=== PATIENT | female | born 1940 | race Caucasian/White ===

== ENCOUNTER 2019-04-30 09:46 | Emergency (ER) | payer MEDICARE, OTHER ==
[2019-04-30 09:58] VITALS: BP 172/94; PULSE 90; RESP 18; TEMP 98
--- NOTE | 2019-04-30 10:31 | ED ---
Extremity Problem HPI - General Chief complaint: Extremity Problem,Nontraumatic Stated complaint: Left arm pain Time Seen by Provider: 04/30/19 10:05 Source: patient Mode of arrival: ambulatory Limitations: no limitations - History of Present Illness Initial comments: Patient is a 78-year-old female, with past medical history of diabetes and hyperlipidemia, presenting to the emergency Department with complaints of left shoulder pain on and off for 2 weeks. Patient denies any trauma or injuries to the left shoulder. Patient states the proximal 92 weeks ago she was doing some painting and a lot of overhead activity when her shoulder and upper left back was sore. Patient does see a cow [place] and that did help a little bit. Patient states she was feeling improvement and then the pain would return. Patient states when she gets stressed she notices that the left shoulder pain does get worse. Patient was lifting cases of water when her pain returned. Patient is leaving for out of town next few days and is worried that something else is going on. Patient denies any chest pain, shortness of breath, cough, nausea, vomiting, abdominal pain at this time. Patient states she has been taking Motrin which does help with her pain. Patient denies any history of heart disease at this time. Patient has no other complaints at this time. Upon arrival to the ER, BP is slightly elevated at 172/94. Rest of vital signs within normal limits, afebrile. - Related Data Home Medications Medication Instructions Recorded Confirmed Aspirin EC [Ecotrin] 325 mg PO DAILY PRN 04/30/19 04/30/19 Atorvastatin [Lipitor] 10 mg PO HS 04/30/19 04/30/19 Glucosam/Aldair-Msm1/C/Felix/Bosw 1 tab PO HS 04/30/19 04/30/19 [Glucosamine-Chondroitin Tablet] Levothyroxine Sodium [Synthroid] 100 mcg PO DAILY 04/30/19 04/30/19 Turmeric Root Extract [Turmeric] 500 mg PO HS 04/30/19 04/30/19 Previous Rx's Medication Instructions Recorded Cyclobenzaprine [Flexeril] 5 mg PO HS PRN #10 tablet 04/30/19 Allergies Allergy/AdvReac Type Severity Reaction Status Date / Time No Known Allergies Allergy Verified 04/30/19 10:11 Review of Systems ROS Statement: Those systems with pertinent positive or pertinent negative responses have been documented in the HPI. ROS Other: All systems not noted in ROS Statement are negative. Past Medical History Past Medical History: Hyperlipidemia, Thyroid Disorder History of Any Multi-Drug Resistant Organisms: None Reported Past Surgical History: No Surgical Hx Reported Past Psychological History: No Psychological Hx Reported Smoking Status: Never smoker Past Alcohol Use History: None Reported Past Drug Use History: None Reported General Exam - General Exam Comments Initial Comments: GENERAL: Well-appearing, well-nourished and in no acute distress. Appears slightly anxious secondary to left shoulder pain. HEAD: Atraumatic, normocephalic. EYES: Pupils equal round and reactive to light, extraocular movements intact, sclera anicteric, conjunctiva are normal. ENT: TMs normal, nares patent, oropharynx clear without exudates. Moist mucous membranes. NECK: Normal range of motion, supple without lymphadenopathy or JVD. LUNGS: Breath sounds clear to auscultation bilaterally and equal. No wheezes rales or rhonchi. HEART: Regular rate and rhythm without murmurs, rubs or gallops. ABDOMEN: Soft, nontender, normoactive bowel sounds. No guarding, no rebound. No masses appreciated. : Deferred EXTREMITIES: Left shoulder has full normal range of motion. No pain at end range. Tenderness noted in the mid to upper left trapezius muscle. Neurovascular intact. Sensation equal in bilateral upper extremities. Strength is 5 out of 5 in upper and lower extremities. No clubbing or cyanosis. NEUROLOGICAL: Cranial nerves II through XII grossly intact. Normal speech, normal gait. PSYCH: Normal mood, normal affect. SKIN: Warm, Dry, normal turgor, no rashes or lesions noted. Limitations: no limitations Course Vital Signs 04/30/19 09:54 Temperature 98 F Pulse Rate 90 Respiratory 18 Rate Blood Pressure 172/94 O2 Sat by Pulse 96 Oximetry Medical Decision Making - Medical Decision Making Patient is a 78-year-old female presenting with left shoulder pain intermittent 2 weeks. Patient is getting very anxious of this might be heart related. Patient denies history of heart disease. There is no trauma to the left shoulder however patient was doing a lot of painting overhead approximately 2 weeks ago when pain started. On exam patient has tenderness to the left upper to mid trap area. Patient's has full range of motion of left shoulder. EKG is within normal limits. Chest x-ray and x-ray of the left shoulder showed no acute changes. CBC, CMP within normal limits. Troponin is normal. UA is within normal limits. Discussed with patient this is most likely related to her trapezius muscle and over use of the left shoulder. Discussed using heat, massage, Motrin for pain relief. Patient be given a short trial of muscle relaxer. Strong precautions were discussed with the patient she verbalized understanding. Patient is in agreement with this plan of care. Patient is stable for discharge at this time. Return parameters were discussed with the patient she verbalized understanding. Patient will follow up with PCP in one to 2 weeks if symptoms persist. Case discussed with Dr. Joseph. - Lab Data Result diagrams: 04/30/19 10:38 04/30/19 10:38 Lab Results 04/30/19 04/30/19 04/30/19 Range/Units 10:30 10:38 10:38 WBC 7.2 (3.8-10.6) k/uL RBC 4.94 (3.80-5.40) m/uL Hgb 14.2 (11.4-16.0) gm/dL Hct 43.0 (34.0-46.0) % MCV 87.1 (80.0-100.0) fL MCH 28.7 (25.0-35.0) pg MCHC 32.9 (31.0-37.0) g/dL RDW 15.2 (11.5-15.5) % Plt Count 298 (150-450) k/uL Neutrophils % 78 % Lymphocytes % 13 % Monocytes % 6 % Eosinophils % 2 % Basophils % 0 % Neutrophils # 5.6 (1.3-7.7) k/uL Lymphocytes # 0.9 L (1.0-4.8) k/uL Monocytes # 0.5 (0-1.0) k/uL Eosinophils # 0.1 (0-0.7) k/uL Basophils # 0.0 (0-0.2) k/uL Sodium 144 (137-145) mmol/L Potassium 4.2 (3.5-5.1) mmol/L Chloride 110 H (98-107) mmol/L Carbon Dioxide 24 (22-30) mmol/L Anion Gap 10 mmol/L BUN 16 (7-17) mg/dL Creatinine 0.69 (0.52-1.04) mg/dL Est GFR (CKD-EPI)AfAm >90 (>60 ml/min/1.73 sqM) Est GFR (CKD-EPI)NonAf 84 (>60 ml/min/1.73 sqM) Glucose 118 H (74-99) mg/dL Calcium 9.8 (8.4-10.2) mg/dL Total Bilirubin 0.5 (0.2-1.3) mg/dL AST 20 (14-36) U/L ALT 21 (9-52) U/L Alkaline Phosphatase 74 (38-126) U/L Troponin I (0.000-0.034) ng/mL Total Protein 7.2 (6.3-8.2) g/dL Albumin 4.4 (3.5-5.0) g/dL Urine Color Yellow Urine Appearance Clear (Clear) Urine pH 5.5 (5.0-8.0) Ur Specific [place] 1.024 (1.001-1.035) Urine Protein Trace H (Negative) Urine Glucose (UA) Negative (Negative) Urine Ketones Negative (Negative) Urine Blood Small H (Negative) Urine Nitrite Negative (Negative) Urine Bilirubin Negative (Negative) Urine Urobilinogen <2.0 (<2.0) mg/dL Ur Leukocyte Esterase Moderate H (Negative) Urine RBC 3 (0-5) /hpf Urine WBC 8 H (0-5) /hpf Ur Squamous Epith Cells <1 (0-4) /hpf Urine Mucus Moderate H (None) /hpf 04/30/19 Range/Units 10:38 WBC (3.8-10.6) k/uL RBC (3.80-5.40) m/uL Hgb (11.4-16.0) gm/dL Hct (34.0-46.0) % MCV (80.0-100.0) fL MCH (25.0-35.0) pg MCHC (31.0-37.0) g/dL RDW (11.5-15.5) % Plt Count (150-450) k/uL Neutrophils % % Lymphocytes % % Monocytes % % Eosinophils % % Basophils % % Neutrophils # (1.3-7.7) k/uL Lymphocytes # (1.0-4.8) k/uL Monocytes # (0-1.0) k/uL Eosinophils # (0-0.7) k/uL Basophils # (0-0.2) k/uL Sodium (137-145) mmol/L Potassium (3.5-5.1) mmol/L Chloride (98-107) mmol/L Carbon Dioxide (22-30) mmol/L Anion Gap mmol/L BUN (7-17) mg/dL Creatinine (0.52-1.04) mg/dL Est GFR (CKD-EPI)AfAm (>60 ml/min/1.73 sqM) Est GFR (CKD-EPI)NonAf (>60 ml/min/1.73 sqM) Glucose (74-99) mg/dL Calcium (8.4-10.2) mg/dL Total Bilirubin (0.2-1.3) mg/dL AST (14-36) U/L ALT (9-52) U/L Alkaline Phosphatase (38-126) U/L Troponin I <0.012 (0.000-0.034) ng/mL Total Protein (6.3-8.2) g/dL Albumin (3.5-5.0) g/dL Urine Color Urine Appearance (Clear) Urine pH (5.0-8.0) Ur Specific [place] (1.001-1.035) Urine Protein (Negative) Urine Glucose (UA) (Negative) Urine Ketones (Negative) Urine Blood (Negative) Urine Nitrite (Negative) Urine Bilirubin (Negative) Urine Urobilinogen (<2.0) mg/dL Ur Leukocyte Esterase (Negative) Urine RBC (0-5) /hpf Urine WBC (0-5) /hpf Ur Squamous Epith Cells (0-4) /hpf Urine Mucus (None) /hpf - EKG Data EKG Comments: Ventricular rate 70, WA interval 146, QTC 447. Normal sinus rhythm. Right bundle branch block. No acute ST segment changes. Disposition Clinical Impression: Left shoulder pain Disposition: HOME SELF-CARE Condition: Stable Instructions (If sedation given, give patient instructions): Shoulder Pain (ED) Additional Instructions: Please return to the Emergency Department if symptoms worsen or any other concerns. Use heat, gentle stretching, massage to the area. Follow-up with PCP in one to 2 weeks if symptoms persist. Use Motrin or Aleve for pain relief. Avoid heavy lifting or overhead activity. Prescriptions: Cyclobenzaprine [Flexeril] 5 mg PO HS PRN #10 tablet PRN Reason: Muscle Spasm Is patient prescribed a controlled substance at d/c from ED?: No Referrals: Shala Castro DO [Primary Care Provider] - 1-2 days
[2019-04-30 11:01] LABS: Basophils % (A) 0 %; Eosinophils # (A) 0.1 k/uL (0-0.7); Eosinophils % (A) 2 %; HGB 14.2 gm/dL (11.4-16.0); Lymphocytes # (A) 0.9 k/uL (1.0-4.8); Lymphocytes % (A) 13 %; MCH 28.7 pg (25.0-35.0); MCHC 32.9 g/dL (31.0-37.0); MCV 87.1 fL (80.0-100.0); Mean Platelet Volume 7.3; Monocytes # (A) 0.5 k/uL (0-1.0); Monocytes % (A) 6 %; Neutrophils # (A) 5.6 k/uL (1.3-7.7); Neutrophils % (A) 78 %; Platelet Count 298 k/uL (150-450); RBC 4.94 m/uL (3.80-5.40); RDW 15.2 % (11.5-15.5); WBC 7.2 k/uL (3.8-10.6)
[2019-04-30 11:06] LABS: ALT 21 U/L (9-52); AST 20 U/L (14-36); African American GFR (CKD) >90 (>60 ml/min/1.73 sqM); Albumin 4.4 g/dL (3.5-5.0); Alkaline Phosphatase 74 U/L (38-126); Anion Gap 10 mmol/L; Blood Urea Nitrogen 16 mg/dL (7-17); Calcium 9.8 mg/dL (8.4-10.2); Carbon Dioxide 24 mmol/L (22-30); Chloride 110 mmol/L (98-107); Glucose 118 mg/dL (74-99); Potassium 4.2 mmol/L (3.5-5.1); Sodium 144 mmol/L (137-145); Total Bilirubin 0.5 mg/dL (0.2-1.3); Total Protein 7.2 g/dL (6.3-8.2)
[2019-04-30 11:09] LABS: Appearance,Urine Clear (Clear); Bilirubin,Urine Negative (Negative); Blood,Urine Small (Negative); Color,Urine Yellow; Glucose,Urine (UA) Negative (Negative); Ketones,Urine Negative (Negative); Leukocyte Esterase,Urine Moderate (Negative); Mucus,Urine Moderate /hpf; Nitrite,Urine Negative (Negative); PH, Urine 5.5 (5.0-8.0); Protein,Urine Trace (Negative); RBC,Urine 3 /hpf (0-5); Specific Gravity,Urine 1.024 (1.001-1.035); Squamous Epithelial Cell,Urine <1 /hpf (0-4); Urobilinogen,Urine <2.0 mg/dL (<2.0)
--- NOTE | 2019-04-30 11:21 | XR ---
EXAMINATION TYPE: XR chest 2V DATE OF EXAM: 04/30/2019 COMPARISON: NONE HISTORY: Left arm and chest pain TECHNIQUE: Frontal and lateral views of the chest are obtained. FINDINGS: There is no focal air space opacity, pleural effusion, or pneumothorax seen. The cardiac silhouette size is within normal limits. Pulmonary hyperinflation of underlying COPD. The osseous s tructures are intact. Diffuse osseous demineralization and mild degenerative changes of the thoracic spine. IMPRESSION: No acute cardiopulmonary process. Underlying COPD.
--- NOTE | 2019-04-30 11:23 | XR ---
EXAMINATION TYPE: XR shoulder complete LT DATE OF EXAM: 04/30/2019 CLINICAL HISTORY: Left arm pain and chest pain TECHNIQUE: Three views of the left shoulder are obtained. COMPARISON: None. FINDINGS: There is no acute fracture/dislocation evident in the left shoulder. The acromioclavicula r and glenohumeral joint spaces appear aligned however there is mild joint space narrowing of the gle nohumeral joints and acromioclavicular joint with small marginal osteophytes of the acromioclavicular joints. The visualized ribs are intact and unremarkable. Diffuse osseous demineralization seen. IMPRESSION: There is no acute fracture or dislocation in the left shoulder. Mild acromioclavicular a nd glenohumeral arthropathy.
== END 2019-04-30 12:25 | disposition home or self-care (01) ==
LOC: EC 09:46
DX: M25.512 Pain in left shoulder (principal); E78.5 Hyperlipidemia, unspecified; E07.9 Disorder of thyroid, unspecified; Z79.890 Hormone replacement therapy; Z79.899 Other long term (current) drug therapy
CPT/HCPCS: 36415; 71046; 80053; 81001; 84484; 85025; 93005; 99284